=== PATIENT | male | born 1935 | race Caucasian/White ===

== ENCOUNTER 2022-02-17 00:31 | Inpatient (IN) ==
[2022-02-17] MEDS ORDERED: Ondansetron 4 MG/2 ML VIAL IVP PRN (03:14)
[2022-02-17] MEDS ORDERED: Naloxone 0.4 MG/ML INJ IVP PRN (03:14)
[2022-02-17] MEDS ORDERED: Acetaminophen 325 MG TABLET PO PRN (03:14)
[2022-02-17] MEDS ORDERED: Dextrose Gel 15 GM/37.5 ML TUBE PO PRN ×2 (03:20)
[2022-02-17] MEDS ORDERED: D5% in Water 1,000 ML IVC PRN (03:20)
[2022-02-17] MEDS ORDERED: *HR* Dextrose 50 % in Water (Syg) 50 ML SYRINGE IVP PRN (03:20)
[2022-02-17] MEDS ORDERED: Ipratropium/Albuterol Neb 3 ML IH PRN (04:00)
[2022-02-17] MEDS: Insulin LISPRO 300 UNITS/3 ML VIAL SUBQ SCH ×4 (04:26→17:33)
[2022-02-17 04:42] LABS: Immature Granulocytes % 1.5 % (0-4); Monocytes % 9.5 %
[2022-02-17 04:44] LABS: Basophils % 0.2 %; Eosinophils # 0.4 K/mcL (0.0-0.6); Hematocrit 35.8 % (37.5-50.1); Hemoglobin 11.2 g/dL (12.9-16.9); Immature Platelets 8.2 % (1.1-6.1); Lymphocytes # 0.8 K/mcL (0.6-4.6); Lymphocytes % 6.1 %; Mean Corpuscular HGB Conc 31.3 g/dL (31.6-35.5); Mean Corpuscular Hemoglobin 30.8 pg (28.0-33.3); Mean Corpuscular Volume 98.4 fL (83.0-100.0); Mean Platelet Volume 13.3 fL (9.4-12.4); Monocytes # 1.3 K/mcL (0.0-1.3); Platelet Count 196 K/mcL (140-400); Red Blood Count 3.64 M/mcL (4.19-5.50); Red Cell Distribution Width 13.6 % (11.5-14.5); Segmented Neutrophils % 79.7 %; White Blood Count 13.8 K/mcL (4.3-11.1)
[2022-02-17 04:50] LABS: INR 1.1; Prothrombin Time 11.9 Seconds (9.4-12.1)
[2022-02-17 04:55] LABS: Estimated Average Glucose 160 mg/dl; Hemoglobin A1C 7.2 %
[2022-02-17 05:25] LABS: Chol/HDL Ratio 1.7 (0-4.9); Magnesium 1.7 mg/dL (1.6-2.6)
[2022-02-17 05:29] LABS: Troponin I < 0.03 ng/mL (< 0.04)
[2022-02-17 05:54] LABS: Alanine Aminotransferase 12 Units/L (7-52); Albumin 3.7 g/dL (3.5-5.7); Albumin/Globulin Ratio 1.1 (1.1-2.2); Alkaline Phosphatase 103 Units/L (34-104); Aspartate Amino Transferase 13 Units/L (13-39); BUN/Creatinine Ratio 13 (6-26); Bilirubin,Indirect 0.3 mg/dL (0.0-1.0); Bilirubin,Total 0.3 mg/dL (0.3-1.0); Blood Urea Nitrogen 133 mg/dL (8-23); Calcium 9.5 mg/dL (8.6-10.3); Carbon Dioxide 8 mEq/L (23-29); Chloride 111 mEq/L (98-107); Globulin 3.3 g/dL (2.4-3.5); Glucose 341 mg/dL (70-105); Osmolality,Calculated 332 (280-300); Potassium 5.7 mEq/L (3.5-5.1); Sodium 133 mEq/L (136-145); Thyroid Stimulating Hormone 0.627 mcIU/mL (0.340-5.600)
[2022-02-17 06:20] LABS: Potassium,Urine 43.5 mEq/L; Sodium, Urine 19.3 mEq/L
[2022-02-17] MEDS ORDERED: Sodium Bicarbonate 75 MEQ in 0.45 % Sodium Chloride 1,000 ML IVC SCH (06:29)
[2022-02-17] MEDS ORDERED: Calcium Gluconate 1gm/50mL 1 GM/50 ML BAG IVPB ONE (06:30)
[2022-02-17 06:42] LABS: Protein/Creatinine Ratio,Urine 0.31 mg/mg (0.00-0.20)
[2022-02-17 08:08] LABS: Adenovirus Not Detected (Not Detect); Bordetella Pertussis Not Detected (Not Detect); Chlamydophila pneumoniae Not Detected (Not Detect); Coronavirus 229E Not Detected (Not Detect); Coronavirus HKU1 Not Detected (Not Detect); Coronavirus NL63 Not Detected (Not Detect); Coronavirus OC43 Not Detected (Not Detect); Human Metapneumovirus Not Detected (Not Detect); Human Rhinovirus/Enterovirus Not Detected (Not Detect); Influenza A Subtype 2009 H1 Not Detected (Not Detect); Influenza B Not Detected (Not Detect); Mycoplasma pneumoniae Not Detected (Not Detect); Parainfluenza Virus 1 Not Detected (Not Detect); Parainfluenza Virus 2 Not Detected (Not Detect); Parainfluenza Virus 3 Not Detected (Not Detect); Parainfluenza Virus 4 Not Detected (Not Detect); Respiratory Syncytial Virus Not Detected (Not Detect); SARS-CoV-2 Not Detected (Not Detect)
[2022-02-17] MEDS ORDERED: cefTRIAXone 1,000 MG in 0.9 % Sodium Chloride Mini Bag 100 ML IVPB SCH (09:00)
[2022-02-17] MEDS: SODIUM ZIRCONIUM CYCLOSILICATE 5 GM POWD.PACK PO SCH ×3 (10:06→20:51)
[2022-02-17] MEDS: MetroNIDAZOLE 500 MG/100 ML 500 MG/100 ML BAG IVPB SCH ×3 (10:06→23:50)
[2022-02-17 10:14] LABS: ABG Base Excess -18 mEq/L (-2 to 3); ABG HCO3 8 mEq/L (21-27); ABG Oxygen Saturation 95 % (95-98); ABG PCO2 19 mmHg (35-45); ABG PH 7.21 pH Units (7.32-7.45); ABG PO2 86 mmHg (85-104); ABG TCO2 8 mEq/L (20-26)
[2022-02-17] MEDS: Sodium Bicarbonate 150 MEQ in D5% in Water 1,000 ML IVC SCH ×2 (10:47→22:47)
[2022-02-17 11:17] LABS: Albumin 3.5 g/dL (3.5-5.7)
[2022-02-17 11:34] LABS: Complement C3 136 mg/dL (87-200); Phosphorous 4.4 mg/dL (2.7-4.5)
[2022-02-17] MEDS ORDERED: *HR* LORazepam Oral Conc 2 MG/ML SL PRN (13:29)
[2022-02-17 14:35] LABS: Potassium 5.3 mEq/L (3.5-5.1)
[2022-02-17] MEDS ORDERED: Piperacillin/Tazobactam 3.375 GM in 0.9 % Sodium Chloride Mini Bag 100 ML IVPB SCH (18:00)
[2022-02-18] MEDS: Insulin LISPRO 300 UNITS/3 ML VIAL SUBQ SCH ×3 (05:53→12:08)
[2022-02-18] MEDS: MetroNIDAZOLE 500 MG/100 ML 500 MG/100 ML BAG IVPB SCH (08:39)
[2022-02-18 10:56] VITALS: BP 117/44; PULSE 87; TEMP 98.1; O2SAT 97
[2022-02-18] MEDS: Sodium Bicarbonate 150 MEQ in D5% in Water 1,000 ML IVC SCH (12:53)
[2022-02-18 15:57] LABS: Influenza A PCR Negative (Negative); Influenza B PCR Negative (Negative); Resp. Syncytial Virus PCR Negative (Negative); SARS-CoV-2 by PCR (In House) Negative (Negative)
[2022-02-19 22:13] LABS: Hepatitis B Surface Antigen Nonreactive (Nonreactive)
[2022-02-19 22:44] LABS: Hepatitis A Antibody IgM Nonreactive (Nonreactive)
[2022-02-19 22:46] LABS: Hepatitis B Core IgM Nonreactive (Nonreactive)
[2022-02-19 22:52] LABS: Hepatitis C Virus Antibody Nonreactive (Nonreactive)
[2022-02-20 10:20] LABS: ANA IgG by ELISA NONE DETECTED (None Detected); Serine Protease-3 Antibody 1 AU/mL (0-19)
[2022-02-21 12:12] LABS: Beta Globulin (PEP) 0.74 g/dL (0.48-1.10)
[2022-02-21 14:55] LABS: IFE Reflexed NOT DONE
[2022-02-21 20:55] LABS: ANCA IFA Titer <1:20 (<1:20)
[2022-02-22 09:37] LABS: ANCA IFA Pattern NONE DETECTED (None Detected); Serine Protease-3 Antibody 0 AU/mL (0-19)
== END 2022-02-18 16:00 | disposition hospice, inpatient (51) | DRG 871 ==
LOC: 2NENU
PROVIDERS: ADMIT Internal Medicine; ATTEND Internal Medicine